=== PATIENT | male | born 1970 | race Caucasian/White ===

== ENCOUNTER 2016-12-26 08:27 | Emergency (ER) | payer SELFPAY ==
[~2016-12-26] VITALS: Ht 185.4 cm; Wt 65.3 kg
[~2016-12-26 08:27] MED LIST: CIPRODEX 0.3%-7.5 ML OT; CLARITIN10 MG PO; KEFLEX500 MG PO; MEDROL DOSEPAK4 MG PO; MOTRIN800 MG PO; TOBREX OPHTH S2.5 ML OPH
[2016-12-26] MEDS ORDERED: CIPROFLOXACIN 110 ML OPH (09:22)
== END 2016-12-26 09:27 | disposition home or self-care (01) ==
LOC: ED 08:27
DX: H18.822 Corneal disorder due to contact lens, left eye (principal); Z88.0 Allergy status to penicillin; F17.200 Nicotine dependence, unspecified, uncomplicated

== ENCOUNTER 2017-08-17 18:00 | Emergency (ER) | payer OTHER ==
[~2017-08-17] VITALS: Wt 68.9 kg
[~2017-08-17 18:00] MED LIST changes: +CIPROFLOXACIN 110 ML OPH
[2017-08-17] MEDS ORDERED: NAPROSYN500 MG PO (18:08)
== END 2017-08-17 19:35 | disposition home or self-care (01) ==
LOC: ED 18:00
DX: M70.22 Olecranon bursitis, left elbow (principal); M25.522 Pain in left elbow; R03.0 Elevated blood-pressure reading, without diagnosis of hypertension; Z79.899 Other long term (current) drug therapy; Z88.0 Allergy status to penicillin

== ENCOUNTER 2017-11-23 15:05 | Emergency (ER) | payer OTHER ==
[~2017-11-23] VITALS: Ht 185.4 cm; Wt 67.1 kg
[~2017-11-23 15:05] MED LIST changes: +NAPROSYN500 MG PO
[2017-11-23] MEDS ORDERED: PREDNISONE20 M1 PO (15:15)
[2017-12-21] MEDS ORDERED: PREDNISONE50 MG PO (10:28)
[2017-12-21] MEDS ORDERED: CYCLOBENZAPRINE10 MG PO (10:28)
== END 2017-11-23 15:22 | disposition home or self-care (01) ==
LOC: ED 15:05
DX: L23.7 Allergic contact dermatitis due to plants, except food (principal); F17.200 Nicotine dependence, unspecified, uncomplicated; Z88.0 Allergy status to penicillin